=== PATIENT | female | born 1980 | race Caucasian/White ===

== ENCOUNTER 2025-02-26 13:04 | Inpatient (IN) | payer OTHER ==
[~2025-02-26] VITALS: Ht 170.2 cm; Wt 80.3 kg
[2025-02-26] MEDS ORDERED: ONDANSETRON HCL/PF 4 MG/2 ML VIAL ONE (13:24)
[2025-02-26] MEDS ORDERED: MORPHINE SULFATE INJ 4 MG/ML DISP.SYRIN ONE (13:24)
[2025-02-26] MEDS: IV NS 0.9% 500 ML BAG IV ONE (13:50)
[2025-02-26 13:55] LABS: WHITE BLOOD COUNT (AUTO) 9.2 K/uL (4.3-11.0)
[2025-02-26 13:56] LABS: BASOPHILS % (AUTO) 0.4 % (0.0-2.0); EOSINOPHILS # (AUTO) 0.1 K/uL (0.0-0.7); EOSINOPHILS % (AUTO) 0.8 % (0.0-6.0); HEMATOCRIT 37 % (33-45); HEMOGLOBIN 12.4 g/dL (11.5-14.8); LYMPHOCYTES # (AUTO) 2.5 K/uL (0.8-4.8); LYMPHOCYTES % (AUTO) 26.7 % (20.0-44.0); MEAN CORPUSCULAR HEMOGLOBIN 32 PG (26.0-33.0); MEAN CORPUSCULAR HGB CONC 33 g/dl (31.0-36.0); MEAN CORPUSCULAR VOLUME 95 fL (82-100); MONOCYTES # (AUTO) 0.7 K/uL (0.1-1.30); NEUTROPHILS # (AUTO) 5.9 K/uL (1.8-8.9); NEUTROPHILS % (AUTO) 64.1 % (43.0-81.0); PLATELET COUNT (AUTO) 276 K/uL (150-450); RED BLOOD CELL COUNT(AUTO) 3.91 MIL/uL (4.0-5.2); RED CELL DISTRIBUTION WIDTH 12.4 % (11.5-15.0)
[2025-02-26 14:05] LABS: CALCIUM, SERUM 8.7 mg/dL (8.5-10.1); CREATININE 0.9 mg/dL (0.6-1.3); POTASSIUM 3.4 mmol/L (3.5-5.1)
[2025-02-26 14:12] LABS: PARTIAL THROMBOPLASTIN TIME 20.7 SEC (24.3-34.3); PROTHROMBIN TIME 10.3 SECS (9.2-11.1)
[2025-02-26] MEDS: ONDANSETRON HCL/PF 4 MG/2 ML VIAL IVP ONE (14:19)
[2025-02-26] MEDS: MORPHINE SULFATE INJ 2 MG/ML DISP.SYRIN IV ONE (14:19)
[2025-02-26 17:30] VITALS: BP 115/81; TEMP 97.9; O2SAT 97
[2025-02-26] MEDS ORDERED: ONDANSETRON HCL/PF 4 MG/2 ML VIAL IVP PRN (17:30)
[2025-02-26] MEDS ORDERED: MAG HYDROX/AL HYDROX/SIMETH 30 ML UDC PO PRN (17:30)
[2025-02-26] MEDS: IV NS 0.9% 1,000 ML IV PRN (17:54)
[2025-02-26] MEDS: POTASSIUM CHLORIDE 20 MEQ POWDER PACKET PO SCH (18:29)
[2025-02-26] MEDS: ENOXAPARIN SODIUM 40 MG/0.4 ML DISP.SYRIN SQ SCH (18:30)
[2025-02-26 20:00] VITALS: BP 104/66; TEMP 97.3; O2SAT 97
[2025-02-26 20:10] VITALS: BP 104/66; TEMP 97.3; O2SAT 97
[2025-02-27 07:30] VITALS: BP 117/76; TEMP 98.1; O2SAT 99
[2025-02-27 08:06] LABS: BASOPHILS % (AUTO) 0.4 % (0.0-2.0); EOSINOPHILS # (AUTO) 0.1 K/uL (0.0-0.7); EOSINOPHILS % (AUTO) 0.5 % (0.0-6.0); HEMATOCRIT 36 % (33-45); HEMOGLOBIN 12.2 g/dL (11.5-14.8); LYMPHOCYTES % (AUTO) 20.3 % (20.0-44.0); MEAN CORPUSCULAR HEMOGLOBIN 32 PG (26.0-33.0); MEAN CORPUSCULAR HGB CONC 34 g/dl (31.0-36.0); MEAN CORPUSCULAR VOLUME 95 fL (82-100); MONOCYTES # (AUTO) 0.9 K/uL (0.1-1.30); MONOCYTES % (AUTO) 9.3 % (2.0-12.0); NEUTROPHILS % (AUTO) 69.5 % (43.0-81.0); PLATELET COUNT (AUTO) 258 K/uL (150-450); RED CELL DISTRIBUTION WIDTH 12.7 % (11.5-15.0)
[2025-02-27 08:25] LABS: CALCIUM, SERUM 8.3 mg/dL (8.5-10.1); CREATININE 0.8 mg/dL (0.6-1.3); MAGNESIUM 2.2 mg/dL (1.8-2.4); POTASSIUM 4.1 mmol/L (3.5-5.1)
[2025-02-27 08:43] VITALS: BP 117/76; TEMP 98.1; O2SAT 99
[2025-02-27] MEDS ORDERED: HYDR-3972 PO (13:58)
[2025-02-27 15:40] VITALS: BP 123/87; TEMP 98.1; O2SAT 99
[2025-02-27 16:00] VITALS: BP 123/87; TEMP 98.1; O2SAT 99
[2025-02-27] MEDS: ACETAMINOPHEN 325 MG TABLET PO PRN (16:46)
[2025-02-27 20:00] VITALS: BP 104/65; TEMP 97.9; O2SAT 98
[2025-02-27 21:08] VITALS: BP 104/65; TEMP 97.9; O2SAT 98
[2025-02-28 08:00] VITALS: BP 109/64; TEMP 98.1; O2SAT 99
[2025-02-28 16:00] VITALS: BP 107/87; TEMP 98.1; O2SAT 97
[2025-02-28 20:00] VITALS: BP 119/85; TEMP 98.1; O2SAT 99
[2025-03-01 06:44] LABS: BASOPHILS % (AUTO) 0.2 % (0.0-2.0); EOSINOPHILS # (AUTO) 0.1 K/uL (0.0-0.7); HEMATOCRIT 35 % (33-45); HEMOGLOBIN 12.3 g/dL (11.5-14.8); MEAN CORPUSCULAR HEMOGLOBIN 33 PG (26.0-33.0); MEAN CORPUSCULAR HGB CONC 35 g/dl (31.0-36.0); MEAN CORPUSCULAR VOLUME 94 fL (82-100); MONOCYTES # (AUTO) 0.7 K/uL (0.1-1.30); MONOCYTES % (AUTO) 9.8 % (2.0-12.0); NEUTROPHILS # (AUTO) 4.8 K/uL (1.8-8.9); PLATELET COUNT (AUTO) 249 K/uL (150-450); RED BLOOD CELL COUNT(AUTO) 3.74 MIL/uL (4.0-5.2); RED CELL DISTRIBUTION WIDTH 12.4 % (11.5-15.0); WHITE BLOOD COUNT (AUTO) 7.6 K/uL (4.3-11.0)
[2025-03-01 06:51] LABS: INR 1.03 (0.91-1.10); PARTIAL THROMBOPLASTIN TIME 27.6 SEC (24.3-34.3); PROTHROMBIN TIME 10.9 SECS (9.2-11.1)
[2025-03-01] MEDS ORDERED: BUPIVACAINE 0.5 % PF 150 MG/30 ML VIAL ONE (06:56)
[2025-03-01] MEDS ORDERED: ANESTHESIA TRAY IN PYXIS 1 EA TRAY MC ONE (06:56)
[2025-03-01] MEDS ORDERED: VANCOMYCIN 1 GM VIAL ONE (06:57)
[2025-03-01] MEDS ORDERED: MIDAZOLAM HCL 2 MG/2ML VIAL ONE (07:09)
[2025-03-01] MEDS ORDERED: FENTANYL PF 100MCG/2ML AMPUL ONE (07:09)
[2025-03-01] MEDS ORDERED: ROCURONIUM BROMIDE 50 MG/5 ML ONE (07:10)
[2025-03-01] MEDS ORDERED: ROPIVACAINE HCL 0.5% 5 MG/ML 30ML VIAL ONE ×2 (07:11)
[2025-03-01 07:12] LABS: CALCIUM, SERUM 9.1 mg/dL (8.5-10.1); CREATININE 0.8 mg/dL (0.6-1.3); MAGNESIUM 2.2 mg/dL (1.8-2.4); PHOSPHORUS 3.8 mg/dL (2.5-4.9); POTASSIUM 3.8 mmol/L (3.5-5.1)
[2025-03-01] MEDS ORDERED: LIDOCAINE 2% 50 ML MDV IJ ONE (07:40)
[2025-03-01] MEDS ORDERED: ONDANSETRON HCL/PF 4 MG/2 ML VIAL IVP PRN (10:00)
[2025-03-01] MEDS ORDERED: FENTANYL PF 100MCG/2ML AMPUL IV PRN ×2 (10:00)
[2025-03-01] MEDS ORDERED: KETOROLAC TROMETHAMINE INJ 30 MG/ML VIAL ONE (10:04)
[2025-03-01] MEDS: KETOROLAC TROMETHAMINE INJ 30 MG/ML VIAL IV PRN (10:05)
[2025-03-01] MEDS ORDERED: MORPHINE SULFATE INJ 4 MG/ML DISP.SYRIN IV PRN (11:00)
[2025-03-01] MEDS: HYDROCODONE/APAP 10/325MG TABLET PO PRN (12:30)
[2025-03-01 16:00] VITALS: BP 125/73; TEMP 99; O2SAT 96
[2025-03-01] MEDS: ANCEF 1 GM/50 ML D5W IV SCH (16:36)
[2025-03-01 20:00] VITALS: BP 110/75; TEMP 98.2; O2SAT 94
[2025-03-02 07:30] VITALS: BP 120/73; TEMP 98.2; O2SAT 98
[2025-03-02 08:00] VITALS: BP 120/73; TEMP 98.2; O2SAT 98
[2025-03-02 15:31] VITALS: BP 108/74; TEMP 98.2; O2SAT 99
[2025-03-02 15:44] VITALS: BP 108/74; TEMP 98.2; O2SAT 99
== END 2025-03-02 16:47 | disposition home or self-care (01) | DRG 313 ==
LOC: ER 13:05 → MED 17:14
PROVIDERS: ADMIT Nurse Practitioner Acute Care; ATTEND Nurse Practitioner Acute Care
PROC: 0QSK0ZZ Reposition Left Fibula, Open Approach (ICD-10-PCS; 2025-03-01)
PROC: 0QSH06Z Reposition Left Tibia with Intramedullary Internal Fixation Device, Open Approach (ICD-10-PCS; principal; 2025-03-01 07:30)
DX: S82.242A Displaced spiral fracture of shaft of left tibia, initial encounter for closed fracture (principal); D68.59 Other primary thrombophilia; E66.9 Obesity, unspecified; Z87.820 Personal history of traumatic brain injury; S82.832A Other fracture of upper and lower end of left fibula, initial encounter for closed fracture; V00.841A Fall from standing electric scooter, initial encounter; Y92.410 Unspecified street and highway as the place of occurrence of the external cause; E87.6 Hypokalemia; Z68.27 Body mass index [BMI] 27.0-27.9, adult
CPT/HCPCS: 36415; 71045-TC; 73590-TC; 80048-TC; 83735-TC; 84100-TC; 84702-TC; 85025-TC; 85730-TC; 87081-TC; 97116-TC; 97530-TC; A4223; C1713; G0378; J0330; J0690; J1100; J1650; J1885; J2250; J2270; J2405; J2704; J2765; J2795; J3010; J3370; J3490; J7030; J7040; J7060